=== PATIENT | female | born 1950 | race Caucasian/White ===

== ENCOUNTER → 2025-06-27 14:29 | Outpatient (CLI) | payer MEDICARE, OTHER, SELFPAY ==
[2025-06-27 15:32] LABS: Influenza A - CEPHEID Flu A POSITIVE (NEGATIVE); Influenza B - CEPHEID Flu B NEGATIVE (NEGATIVE)
[2025-06-27 16:24] LABS: COVID-19 CEPHEID 4-PLEX PCR Negative (Negative)
== END ==
LOC: LAB 14:29
PROVIDERS: Visit Provider Nurse Practitioner Family
DX: R05.1 Acute cough (principal)
CPT/HCPCS: 87637